=== PATIENT | female | born 1995 | race Hispanic/Latino ===

== ENCOUNTER 2018-07-23 18:53 | Emergency (ER) | payer OTHER ==
[2018-07-23 19:51] LABS: Urine Amorphous Sediment 3+ /HPF (NONE SEEN); Urine Bacteria <20 /HPF (<20); Urine Culture Reflex Order NOT NEEDED; Urine Mucus 1+ /HPF (NONE SEEN); Urine RBC <5 /HPF (NONE SEEN)
[2018-07-23 19:52] LABS: Urine Blood NEGATIVE (NEG); Urine Glucose NEGATIVE (NEG); Urine Protein NEGATIVE (NEG)
[2018-07-23] MEDS ORDERED: NA CHLORIDE 0.9% 1,000 ML ONE (20:03)
[2018-07-23 20:21] LABS: Absolute Lymphocytes (CBC) 1.7 K/uL (0.7-4.9); Absolute Monocytes 0.6 K/uL (0.1-1.3); Absolute Neutrophil 7.4 K/uL (1.8-8.0); Basophils % 0.3 % (0-1.3); Eosinophils % 0.8 % (0-4.4); Hematocrit 36.9 % (36.0-45.0); Lymphocytes % 17.6 % (15.3-44.8); MCH 28.5 pg (27.0-35.0); MCV 84.3 fL (80-100); MPV 10.2 fL (7.6-11.3); Monocytes % 5.9 % (3.3-12.3); RBC Red Blood Cell Count 4.38 M/uL (3.86-4.86)
--- NOTE | 2018-07-23 21:21 | RAD REPORT ---
EXAM DESCRIPTION: US - OB Limited - 07/23/2018 8:05 pm CLINICAL HISTORY: Bleeding, cramping, , history of subchorionic bleed at 12 weeks diagnosed at outside imaging COMPARISON: None. FINDINGS: Limited OB examination was performed. Single gestation is identified. Heart rate is 147 BP M. No gross anatomic abnormality seen. Anatomic measurements were obtained yielding 17 week 4 d ay age. Calculated REHAN is 12/27/2018. Amniotic fluid volume is normal. Grade 1 posterior placenta is present. Cervical canal shows closed internal os. No funneling. There i s a hypoechoic focus in the deep central placenta at the basal plate. Placental abruption is not curr ently suspected. This may be an unusual or atypical venous calix. Placental contraction along the post erior wall can distort the contour of the placenta. IMPRESSION: Single 17 week 4 day gestation with normal heart rate. No gross anatomic abnormali ty seen. Closed internal os. Cervical canal is at least 3.5 cm in length. No marginal hematoma or placenta pre via. Hypoechoic focus in the deep central placenta at the basal plate may be an atypical venous Calix. Plac ental abruption is not suspected.
[2018-07-23 21:22] LABS: BUN Blood Urea Nitrogen 4 mg/dL (7-18); Bicarbonate 23 mmol/L (21-32); Glucose Level 84 mg/dL (74-106); HCG, Quantitative 13918 mIU/mL (1-3); Potassium 3.4 mmol/L (3.5-5.1); Sodium Level 139 mmol/L (136-145)
--- NOTE | 2018-07-23 21:40 | ER ---
Nurse's Notes [facility] Name: Kristina Diehl Age: 23 yrs Sex: Female : 1995 Arrival Date: 07/23/2018 Time: 18:57 Bed 20 Private MD: Diagnosis: Threatened ; related conditions, unspecified, second trimester;Hypokalemia Presentation: 07/23 19:17 Presenting complaint: Patient states: that she is having abd cramping sharp pains that fc started this am. Then she started to have bright red bleeding at 1800 tonight. Positive nausea but no vomiting. Pt see's Amparo Duval in [place] for OB and was told she has a hematoma on her placenta. Transition of care: patient was not received from another setting of care. Onset of symptoms was July 23, 2018. Risk Assessment: Do you want to hurt yourself or someone else? Patient reports no desire to harm self or others. Initial Sepsis Screen: Does the patient meet any 2 criteria? No. Patient's initial sepsis screen is negative. Does the patient have a suspected source of infection? No. Patient's initial sepsis screen is negative. Care prior to arrival: None. 19:17 Method Of Arrival: Ambulatory fc 19:17 Acuity: JAD 3 fc Triage Assessment: 20:12 General: Behavior is calm, cooperative. 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 - Social history:: Smoking status: Patient/guardian denies using tobacco. - Ebola Screening: : Patient negative for fever greater than or equal to 101.5 degrees Fahrenheit, and additional compatible Ebola Virus Disease symptoms Patient denies exposure to infectious person Patient denies travel to an Ebola-affected area in the 21 days before illness onset. - Family history:: not pertinent. Screenin:20 Abuse screen: Denies threats or abuse. Nutritional screening: No deficits noted. fc Tuberculosis screening: No symptoms or risk factors identified. Fall Risk None identified. Assessment: 20:10 Obstetrical Assessment: General assessment: awake and alert, skin warm and dry, ls4 respirations even and unlabored, Rupture of membranes noted. Patient reports abdominal cramping. General: Appears in no apparent distress. Pain: Complains of pain in right upper quadrant Pain currently is 8 out of 10 on a pain scale. Quality of pain is described as crampy. Neuro: No deficits noted. Cardiovascular: No deficits noted. Respiratory: Airway is patent Respiratory effort is even, unlabored, Respiratory pattern is regular, Breath sounds are clear bilaterally. : No deficits noted. Musculoskeletal: No deficits noted. Vital Signs: 19:20 BP 120 / 73; Pulse 80; Resp 18; Temp 98.1(O); Pulse Ox 98% on R/A; Weight 91.17 kg (R); fc Height 5 ft. 0 in. (152.40 cm) (R); Pain 8/10; 19:20 Body Mass Index 39.25 (91.17 kg, 152.40 cm) fc ED Course: 18:57 Patient arrived in ED. mr 19:18 Triage completed. fc 19:20 Arm band placed on right wrist. Patient placed in an exam room, on a stretcher. fc 19:20 Patient has correct armband on for positive identification. Placed in gown. Bed in low fc position. Call light in reach. 19:21 Bola Flores MD is Attending Physician. alfonzo 19:22 Eneida Sam, ADRIA is Primary Nurse. ls4 19:28 Patient taken to ultrasound. lu 20:05 OB Limited In Process Unspecified. EDMS 20:12 No provider procedures requiring assistance completed. Inserted saline lock: 20 gauge ls4 in right forearm, using aseptic technique. Blood collected. 20:19 Patient moved back from ultrasound. lu Administered Medications: 20:03 Drug: NS 0.9% 1000 ml Route: IV; Rate: 1 bolus; Site: right forearm; ls4 21:46 Drug: Potassium Effervescent Tablet 25 mEq Route: PO; ls4 Outcome: 21:40 Discharge ordered by . alfonzo 22:13 Patient left the ED. ls4 Signatures: Dispatcher [employer] Bola Jose MD MD cha Rivera, Mary mr Chretien, Felicia, RN RN Jf Coreas jd, Lisa, RN RN ls4
--- NOTE | 2018-07-23 21:41 | EDPHYS ---
Physician Documentation [facility] Name: Kristina Diehl Age: 23 yrs Sex: Female : 1995 Arrival Date: 07/23/2018 Time: 18:57 Bed 20 Private MD: ED Physician Bola Flores HPI: 07/23 19:36 This 23 yrs old Female presents to ER via Ambulatory with complaints of alfonzo Vaginal Bleeding, + Preg <12wks. 19:36 The patient presents to the emergency department with vaginal bleeding. The estimated alfonzo gestational age is 17 weeks. course: care: at a clinic. Associated signs and symptoms: The patient has no apparent associated signs or symptoms. The patient has not experienced similar symptoms in the past. 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 - Social history:: Smoking status: Patient/guardian denies using tobacco. - Ebola Screening: : Patient negative for fever greater than or equal to 101.5 degrees Fahrenheit, and additional compatible Ebola Virus Disease symptoms Patient denies exposure to infectious person Patient denies travel to an Ebola-affected area in the 21 days before illness onset. - Family history:: not pertinent. ROS: 19:36 Constitutional: Negative for fever, chills, and weight loss, Eyes: Negative for injury, alfonzo pain, redness, and discharge, ENT: Negative for injury, pain, and discharge, Neck: Negative for injury, pain, and swelling, Cardiovascular: Negative for chest pain, palpitations, and edema, Respiratory: Negative for shortness of breath, cough, wheezing, and pleuritic chest pain, Abdomen/GI: Negative for abdominal pain, nausea, vomiting, diarrhea, and constipation, Back: Negative for injury and pain, MS/Extremity: Negative for injury and deformity, Skin: Negative for injury, rash, and discoloration, Neuro: Negative for headache, weakness, numbness, tingling, and seizure, Psych: Negative for depression, anxiety, suicide ideation, homicidal ideation, and hallucinations, Allergy/Immunology: Negative for hives, rash, and allergies, Endocrine: Negative for neck swelling, polydipsia, polyuria, polyphagia, and marked weight changes, Hematologic/Lymphatic: Negative for swollen nodes, abnormal bleeding, and unusual bruising. 19:36 : Positive for vaginal bleeding. Exam: 19:36 Constitutional: This is a well developed, well nourished patient who is awake, alert, alfonzo and in no acute distress. Head/Face: Normocephalic, atraumatic. Eyes: Pupils equal round and reactive to light, extra-ocular motions intact. Lids and lashes normal. Conjunctiva and sclera are non-icteric and not injected. Cornea within normal limits. Periorbital areas with no swelling, redness, or edema. ENT: Nares patent. No nasal discharge, no septal abnormalities noted. Tympanic membranes are normal and external auditory canals are clear. Oropharynx with no redness, swelling, or masses, exudates, or evidence of obstruction, uvula midline. Mucous membranes moist. Neck: Trachea midline, no thyromegaly or masses palpated, and no cervical lymphadenopathy. Supple, full range of motion without nuchal rigidity, or vertebral point tenderness. No Meningismus. Chest/axilla: Normal chest wall appearance and motion. Nontender with no deformity. No lesions are appreciated. Cardiovascular: Regular rate and rhythm with a normal S1 and S2. No gallops, murmurs, or rubs. Normal PMI, no JVD. No pulse deficits. Respiratory: Lungs have equal breath sounds bilaterally, clear to auscultation and percussion. No rales, rhonchi or wheezes noted. No increased work of breathing, no retractions or nasal flaring. Back: No spinal tenderness. No costovertebral tenderness. Full range of motion. Skin: Warm, dry with normal turgor. Normal color with no rashes, no lesions, and no evidence of cellulitis. MS/ Extremity: Pulses equal, no cyanosis. Neurovascular intact. Full, normal range of motion. Neuro: Awake and alert, GCS 15, oriented to person, place, time, and situation. Cranial nerves II-XII grossly intact. Motor strength 5/5 in all extremities. Sensory grossly intact. Cerebellar exam normal. Normal gait. Psych: Awake, alert, with orientation to person, place and time. Behavior, mood, and affect are within normal limits. 19:36 Abdomen/GI: Inspection: gravid appearance, Bowel sounds: active, Palpation: abdomen is soft and non-tender, Liver: no appreciated palpable abnormalities, Hernia: not appreciated. Vital Signs: 19:20 BP 120 / 73; Pulse 80; Resp 18; Temp 98.1(O); Pulse Ox 98% on R/A; Weight 91.17 kg (R); fc Height 5 ft. 0 in. (152.40 cm) (R); Pain 8/10; 19:20 Body Mass Index 39.25 (91.17 kg, 152.40 cm) fc MDM: 19:22 Patient medically screened. [facility] 19:38 Data reviewed: vital signs, nurses notes, lab test result(s), radiologic studies, [facility] ultrasound. 07/23 18:58 Order name: Urine Culture [facility] 07/23 18:58 Order name: Urine Microscopic Only; Complete Time: 20:43 [facility] 07/23 19:23 Order name: Quantitative Hcg; Complete Time: 21:39 [facility] 07/23 19:23 Order name: Abo/rh Typing; Complete Time: 21:39 [facility] 07/23 19:23 Order name: Basic Metabolic Panel; Complete Time: 21:39 [facility] 07/23 19:23 Order name: CBC with Diff; Complete Time: 20:43 [facility] 07/23 19:30 Order name: Urine Dipstick--Ancillary (enter results); Complete Time: 20:43 gm 07/23 19:30 Order name: Urine --Ancillary (enter results); Complete Time: 20:43 gm 07/23 20:03 Order name: OB Limited; Complete Time: 21:39 EDMI 07/23 20:56 Order name: ABO/RH no charge; Complete Time: 21:39 EDMI 07/23 18:58 Order name: Urine Test (obtain specimen); Complete Time: 19:32 snw 07/23 18:58 Order name: Urine Dipstick-Ancillary (obtain specimen); Complete Time: 19:32 [facility] 07/23 19:23 Order name: IV Saline Lock; Complete Time: 20:10 [facility] 07/23 19:23 Order name: Labs collected and sent; Complete Time: 20:10 [facility] 07/23 19:23 Order name: NPO; Complete Time: 20:10 [facility] Administered Medications: 20:03 Drug: NS 0.9% 1000 ml Route: IV; Rate: 1 bolus; Site: right forearm; ls4 21:46 Drug: Potassium Effervescent Tablet 25 mEq Route: PO; ls4 Disposition: 07/23/18 21:40 Discharged to Home. Impression: Threatened , related conditions, unspecified, second trimester, Hypokalemia. - Condition is Stable. - Discharge Instructions: Potassium Content of Foods, Threatened Miscarriage, Threatened Miscarriage, [id number], Pelvic Rest, Hypokalemia, Vaginal Bleeding During , Second Trimester, Oehz-by-Cyix. - Prescriptions for Vitamin 27- 0.8 mg Oral Tablet - take 1 tablet by ORAL route once daily; 30 tablet. - Medication Reconciliation Form, Thank You Letter, Antibiotic Education, Prescription Opioid Use form. - Follow up: Private Physician; When: 2 - 3 days; Reason: Recheck today's complaints, Continuance of care, Re-evaluation by your physician. - Problem is new. - Symptoms have improved. Signatures: Dispatcher [employer] EDMS Bola Flores MD MD cha Therrien, Shelly, MIN-C CHILDREN'S SERVICE SUPERVISOR-Rubiw Susy Cain, RN RN Eneida Sam RN RN ls4 Corrections: (The following items were deleted from the chart) 20:03 19:24 Transvaginal Ob+US.RAD.BRZ ordered. EDMI EDMS 20:05 19:37 OB Limited+US.RAD.BRZ ordered. EDMI EDMS 22:13 21:40 07/23/2018 21:40 Discharged to Home. Impression: Threatened ; ls4 related conditions, unspecified, second trimester; Hypokalemia. Condition is Stable. Discharge Instructions: Threatened Miscarriage, Threatened Miscarriage, [id number], Pelvic Rest, Vaginal Bleeding During , Second Trimester, [id number]. Prescriptions for Vitamin 27-0.8 mg Oral Tablet - take 1 tablet by ORAL route once daily; 30 tablet. and Forms are Medication Reconciliation Form, Thank You Letter, Antibiotic Education, Prescription Opioid Use. Follow up: Private Physician; When: 2 - 3 days; Reason: Recheck today's complaints, Continuance of care, Re-evaluation by your physician. Problem is new. Symptoms have improved. alfonzo
[2018-07-23] MEDS ORDERED: POTASSIUM 25 MEQ EFFERV TAB ONE (21:54)
== END 2018-07-23 22:13 | disposition home or self-care (01) ==
LOC: ER 18:53
DX: O20.0 Threatened abortion (principal); E87.6 Hypokalemia; O99.282 Endocrine, nutritional and metabolic diseases complicating pregnancy, second trimester; E03.9 Hypothyroidism, unspecified; Z3A.18 18 weeks gestation of pregnancy; Z88.0 Allergy status to penicillin
CPT/HCPCS: 36415; 76815; 80048; 81003; 81015; 81025; 84702; 85025; 86900; 86901; 87086; 87088; 99284; J7030